=== PATIENT | male | born 1970 | race Caucasian/White ===

== ENCOUNTER → 2019-03-20 08:16 | Outpatient (CLI) | payer MEDICAID, SELFPAY | PROVIDERS: PCP Emergency Medicine; Visit Provider Internal Medicine Endocrinology, Diabetes & Metabolism | DX: E27.9 Disorder of adrenal gland, unspecified (principal) | CPT/HCPCS: 82533 ==

== ENCOUNTER → 2019-03-29 08:21 | Outpatient (CLI) | payer MEDICAID, SELFPAY | PROVIDERS: Visit Provider Emergency Medicine | DX: Z51.81 Encounter for therapeutic drug level monitoring (principal) | CPT/HCPCS: 82533 ==

== ENCOUNTER → 2019-04-07 08:36 | Outpatient (CLI) | payer MEDICAID, SELFPAY | LOC: LAB 08:40 → LAB.DROPOF 04-09 13:51 | PROVIDERS: Visit Provider Emergency Medicine | DX: Z51.81 Encounter for therapeutic drug level monitoring (principal) | CPT/HCPCS: 82533 ==

== ENCOUNTER → 2019-10-11 08:52 | Outpatient (CLI) | payer MEDICAID, SELFPAY ==
--- NOTE | 2019-10-11 08:56 | CT_ITS ---
PROCEDURE: CT ABDOMEN PELVIS WO CON CLINICAL INDICATION: R/O VENOUS CLOT DUE TO EDEMA Abdominal pain, leg swelling COMPARISON: CT ABDOMEN PELVIS W CON from 06/25/2019 TECHNIQUE: Axial images obtained with sagittal and coronal reformats. All CT scans at the facility use one or more dose reduction, viz: automated exposure control, ma/kV adjustment per patient size (including targeted exams where dose is matched to indication, i.e. head), or iterative reconstruction technique. FINDINGS: LOWER THORAX: No acute finding ABDOMEN & PELVIS: Liver, spleen, gallbladder, and adrenal glands have an unremarkable appearance. There is diffuse fatty infiltration of the pancreas. There are punctate nonobstructing bilateral renal calculi measuring up to 3 mm in the lower pole both kidneys. No ureteral calculi. No hydronephrosis. No evidence of appendicitis. No intestinal obstruction or free air. There is a moderate amount of retained colonic feces throughout the colon greatest at the rectosigmoid region. No acute bony anomalies. IMPRESSION: Constipation otherwise negative CT abdomen pelvis without contrast Dictated by: Yordy River MD 10/11/2019 17:29 Electronically signed by Yordy River MD in [facility] 10/11/2019 17:29
== END ==
PROVIDERS: PCP Emergency Medicine; Visit Provider Emergency Medicine
DX: R60.0 Localized edema (principal); M79.604 Pain in right leg
CPT/HCPCS: 74176

== ENCOUNTER → 2020-06-07 21:08 | Outpatient (CLI) | payer MEDICAID, SELFPAY | PROVIDERS: PCP Nurse Practitioner Family; Visit Provider Nurse Practitioner Family | DX: U07.1 COVID-19 (principal) | CPT/HCPCS: U0003 ==

== ENCOUNTER → 2020-11-12 07:14 | Outpatient (CLI) | payer MEDICAID, SELFPAY ==
--- NOTE | 2020-11-12 07:14 | NM_ITS ---
APPROVED REPORT Exam: Nuclear Stress Test Indication: Chest pain, SOB, HTN, DM Patient Location: Outpatient Stress Tech: Jolene Morris [place] Tech:Rhina Medellin, ARRT, RT (R)(N) Ht: 6 ft 3 in Wt: 300 lbs HR: 61 bpm BP: 131/85 mmHg BSA: 2.61 m2 BMI: 37.4 History: Chest pain, SOB, HTN, DM Procedure: Patient received a 0.4 mg of intravenous Lexiscan, resting heart rate 61 bpm, resting blood pressure 131/85 mmHg, with Lexiscan maximum heart rate achived was 81 bpm which is Less than 85 % of the maximum predicted heart rate and blood pressure was 139/76 mmHg. With Lexiscan, patient denied any complaint of chest pain. Electrocardiogram Resting electrocardiogram showed sinus rhythm, with Lexiscan there is less than 1.[address] segment depression noted from the baseline EKG. The EKG portion of the Lexiscan is nondiagnostic. Cardiac Stress and Resting SPECT Images: Cardiac Stress and Resting SPECT images were obtained using technetium 99m Myoview 31.9 mCi stress and 10.02 mCi at rest. Patient was unable to do the Prone images do to being SOB. Gated SPECT for analysis of segmental wall motion and calculation of the ejection fraction also done. Cardiac stress and resting SPECT images show mild fixed defect in the inferior wall with normal contractility gated SPECT is likely secondary to soft tissue attenuation, no reversible ischemia seen. Computer derived ejection fraction is 57% with no regional wall motion abnormality, right ventricle is normal size and contractility. Conclusion: 1. The EKG portion of the Lexiscan is nondiagnostic and 2. No scintigraphic evidence of reversible ischemia seen, computer derived ejection fraction is 57% with no regional wall motion abnormality, right ventricle is normal size and contractility. 3. Likely normal Lexiscan Myoview study. Electronically signed by : Willi Ruffin, 11/12/2020 21:06:48
--- NOTE | 2020-11-12 07:16 | CA_ITS ---
APPROVED REPORT EXAM: Comprehensive 2D, Doppler, and color-flow Echocardiogram Medicine Teacher: CASANDRA Dean, RVS Ht: 6 ft 3 in Wt: 333lbs BSA: 2.72 BP: 110/62 mmHg Indications: Abnormal ECG, Shortness of Breath, CVA/TIA, Hyperlipidemia, Hypertension/HDD Echo Enhancing Agent Comments: Extra large body habitus. 2D Dimensions IVSd 1.10 cm M: 0.6-1.2 LVEF (Visual) 55.00 % PWd 1.10 cm M: 0.6 - 1.2 LVEF (Hartman's) 61.00 % M: 52 - 72 LVDd 6.20 cm M: 4.2 - 5.9 LV Volume 221.00 mL M: 62 - 150 LVDs 4.50 cm M: 2.5 - 4.0 LV Volume Index 81.25 mL/m2 M: 34 - 74 Aortic Root 3.20 cm M: 3.1 - 3.7 LA Volume 131.00 mL Left Atrium 4.90 cm M: 3.0 - 4.0 LA Volume Index 48.00 mL/m2 (M/F) 16-34 RVID Base (AP4) 2.70 cm (M/F) 2.5-4.1 EF AP4-a2DQ 61.00 % LVOT 2.15 cm (M/F) 1.5-2.5 M-Mode Dimensions RVDd 3.90 cm (0.9-2.6) LA Diam 4.90 cm (1.9-4.0) Ao Diam 3.20 cm (2.0-3.7) AV Cusp 2.40 cm (1.5-2.6) EF (Teich) 52.00% FS 27.00% TAPSE 2.90 (<1.7) LV Diastology E/A Ratio 1.30 Aortic Valve LVOT Max 120.00 (70-110 cm/s) AoV Peak Howie. 180.00 (50-130 cm/s) Tricuspid Valve TR P. Velocity 2.66 cm/s RAP Estimate 10.00 mmHg RVSP 37.70 mmHg Left Ventricle Left atrium is mildly enlarged, left ventricle is normal size, mild concentric left ventricular hypertrophy, visually estimated ejection fraction 55% with no regional wall motion abnormality, grade 1 diastolic dysfunction seen without tissue Doppler evidence of raise left atrial pressure. Right Ventricle Right atrium and right ventricle are normal size and contractility. Aortic Valve Aortic valve is minimally thickened and fibrosed, there is no aortic stenosis or aortic insufficiency. Mitral Valve Mitral valve grossly normal, there is trace mitral regurgitation. Tricuspid Valve Tricuspid grossly normal, there is trace tricuspid regurgitation, tricuspid regurgitation jet velocity is inadequate for calculation of the right ventricular systolic pressure. Pulmonic Valve Pulmonic valve is poorly visualized. Great Vessels Aortic root is normal size. Pericardium No significant pericardial effusion noted. Conclusion 1. Mildly dilated, normal left ventricular size, mild concentric left ventricular hypertrophy, visually estimated ejection fraction 55% with no regional wall motion abnormality, grade 1 diastolic dysfunction seen without tissue Doppler evidence of raise left atrial pressure. 2. Trace mitral and tricuspid regurgitation. 3. No significant pericardial effusion noted. Electronically signed by : Willi Ruffin, 11/12/2020 21:26:37
--- NOTE | 2020-11-12 07:16 | US_ITS ---
APPROVED REPORT Exam Type: Lower Extremity Segmental Pressures Charge Out Clerk: Monica Comer CRT Indications Claudication: Edema Risk Factors Hypertension Hyperlipidemia Obesity TIA/CVA History Pressures/Indices Right Indices Left Indices Brachial 161.00 mmHg Brachial 167.00 mmHg Low Thigh 179.00 mmHg 1.07 Low Thigh 170.00 mmHg 1.02 Calf 164.00 mmHg 0.98 Calf 182.00 mmHg 1.09 Ankle(PT) 174.00 mmHg 1.04 Ankle(PT) 178.00 mmHg 1.07 Ankle(DP) 179.00 mmHg 1.07 Ankle(DP) 172.00 mmHg 1.03 Digit 150.00 mmHg 0.90 Digit 171.00 mmHg 1.02 Findings R TIKI 1.1 L TIKI 1.1 R TBI 0.9 L TBI 1.0 Normal waveforms Normal pulses Conclusion Normal appearing resting noninvasive lower extremity arterial study. Electronically signed by : Yordy River MD 11/12/2020 15:31:48
--- NOTE | 2020-11-12 07:16 | CA_ITS ---
APPROVED REPORT Bilateral Lower Extremity Venous Study for DVT. Heavy Cleaner: CT Indications Lower Extremity Pain: Bilateral LE edema, SOA Vein Imaging CFV (R): compressive, spontaneous, phasic, augmentation SFJ (R): compressive, spontaneous, phasic, augmentation FEM (R): compressive, spontaneous, phasic, augmentation POP (R): compressive, spontaneous, phasic, augmentation DFV (R): compressive, spontaneous, phasic, augmentation PTV (R): compressive, spontaneous, phasic, augmentation GSV (R): compressive, spontaneous, phasic, augmentation SSV (R): compressive, spontaneous, phasic, augmentation Peroneals (R):compressive, spontaneous, phasic, augmentation GAS (R): compressive, spontaneous, phasic, augmentation CFV (L): compressive, spontaneous, phasic, augmentation SFJ (L): compressive, spontaneous, phasic, augmentation FEM (L): compressive, spontaneous, phasic, augmentation POP (L): compressive, spontaneous, phasic, augmentation DFV (L): compressive, spontaneous, phasic, augmentation PTV (L): compressive, spontaneous, phasic, augmentation GSV (L): compressive, spontaneous, phasic, augmentation SSV (L): compressive, spontaneous, phasic, augmentation Peroneals (L):compressive, spontaneous, phasic, augmentation GAS (L): compressive, spontaneous, phasic, augmentation Findings Bilateral venous doppler negative for DVT/SVT. Vessels compressible. Interstitial edema noted. Pt and peroneals difficult to image. Conclusion No evidence of DVT or superficial thrombophlebitis in the veins scanned of the right lower extremity. Electronically signed by : Yordy River MD 11/12/2020 15:33:07
--- NOTE | 2020-11-12 09:04 | HMH.ITSHM ---
Current Home Medications as stated by this patient Asif Archuleta or patient access representative. []BISACODYL IBUPROFEN MELATONIN PROMETHAZINE CARVEDIOLOL CETIRIZINE DOXAZOSIN LEVETIRACETAM LISINOPRIL MULTIVITAMINS NIFEDIPINE POTASSIUM SENNA
--- NOTE | 2020-11-12 09:31 | CA_ITS ---
APPROVED REPORT Exam: Pharmacologic Technologist: Jolene Morris, Ht: 6 ft 3 in Wt: 333 lbs BSA: 2.72 m2 HR: 61 bpm BP: 131/85 mmHg Medical History Medications: Lisinopril,,,,, Lasix,,,,, Coreg,,,,, ZYRTEC,,,,, ProMETHAZINE,,,,, DOxazosin,,,,, KEPPRA,,,,, MeLATONIN,,,,, Bisacodyl,,,,, Potassium,,,,, Procardia XL,,,,, Stress Test Details Test: LEXISCAN HR Resting HR: 62 bpm Max Heart Rate (APMHR): 170.268722 bpm Max HR Achieved: 93 bpm Target HR (85% APMHR): 144.715415 bpm % of APMHR: 54.71 Recovery HR: 71 bpm BP Resting BP: 131/85 mmHg Max BP: 139/76 mmHg Recovery BP: 131.0/75.0 mmHg ECG Resting ECG: NSR, RAD, poor R wave progression Clinical Exercise duration: 04:00 min Highest Stage Achieved: Stress ECG Conclusion Symptoms: Mild SOA, stomach discomfort. Arrhythmias/Ectopy: None. ST-T Changes: No significant changes. Conclusion: Unremarkable Lexiscan stress. Myoview images reported separately. Electronically signed by : Willi Ruffin, 11/12/2020 20:52:56
== END ==
PROVIDERS: PCP Emergency Medicine; Visit Provider Physician Assistant
DX: R06.00 Dyspnea, unspecified (principal); R07.9 Chest pain, unspecified; R60.0 Localized edema; R94.31 Abnormal electrocardiogram [ECG] [EKG]; M79.606 Pain in leg, unspecified; R06.02 Shortness of breath
CPT/HCPCS: 78452; 93017; 93306; 93923; 93970; A9502; J2785

== ENCOUNTER → 2022-03-25 10:36 | Outpatient (CLI) | payer MEDICAID, SELFPAY | PROVIDERS: PCP Nurse Practitioner Family; Visit Provider Nurse Practitioner Family | DX: L73.9 Follicular disorder, unspecified (principal) ==

== ENCOUNTER 2022-04-09 10:00 | Outpatient (RCR) | payer MEDICAID, SELFPAY ==
--- NOTE | 2022-02-02 09:18 | HMH.PTOPWND ---
Rehab Outpt Wound Evaluation Rehab OP Wound Evaluation Start: 02/02/22 08:27 Freq: Status: Active Protocol: Document 02/02/22 09:07 GABRIEL (Rec: 02/02/22 09:13 GABRIEL [id number]) E-signed By Ant Toledo PT Subjective/History History History Pt is 51 yowm who presents with c/o R LE edema x 3-4 wks with insidious onset of symptoms. He reports no c/o pain or tenderness to palpation at this time. He presents with increased erythema, mild increased calor , and minimal weeping drainage . He reports he was recently on a round of oral abx. He has PMH of heart failure, chico 's disease, adenocortical carcinoma, HTN, CVA, seizures. He presents this date with symptoms of resolving cellulitis. Subjective Subjective 0/10 pain. 0/4 TTP. 2+ pitting edema to R foot and ankle with fibrotic edema throughout the rest of the lower leg. Lymphedema Eval Classification of Lymphedema Secondary Lymphedema Yes Stemmer's sign Stemmer's Sign yes Stage of Lymphedema Lymphedema stages Stage II (Pitting edema, increased fibrosis w/ decreased pitting) Skin Changes Dry Skin Yes Taut, Shiny Skin Yes Redness Yes Brittle Uneven Nails Yes Discoloration of Skin Yes Other Changes Yes Pain Scale Pain Scale (0-10) 0 Affected Extremities Areas Affected by Lymphedema/Edema Right Lower Extremity Manual Lymphatic Drainage Treatment Area MLD Treatment Area Right Lower Extremity Wound Problems/Impairments Impairments Problems/Impairmments Impaired Strength,Impaired Endurance,Impaired Transfers, Impaired Gait Pattern,Impaired Walking,Impaired Recreational Activities,Increased Edema, Lymphedema Present,Impaired Self Care/Self Management Prognosis Rehab Potential Good Clinical Impression Consistent with Diagnosis Yes Short Term Goals Number of Weeks 2 Decrease Edema Yes: 1+ p
--- NOTE | 2022-02-27 16:12 | HMH.RHREAS ---
Rehab Reassessment Rehab OP Re-assessment Start: 02/27/22 16:07 Freq: Status: Active Protocol: Document 02/27/22 16:07 GABRIEL (Rec: 02/27/22 16:12 PHOLINSEY [id number]) E-signed By Ant Toledo, PT Rehab Re-assessment Subjective Subjective Pt continues to report 0/10 pain. It doesn't hurt, but it itches a little. Objective Objective Notes R LE wound: R lower leg from mid-calf to dorsal foot distally remains superficially irritated. Significant erythema present and moderate purulent drainage remains present. Edema: 1+ pitting edema throughout R lower leg this date. Assessment Progress Assessment Slower Than Expected Assessment Notes Pt has shown significant improvement in edema throughout the R LE. However, he continues to have superficial skin skin wounds over a large portion of his lower leg with increased drainage and foul odor. Continues to need edema reduction and wound care. May benefit from further oral abx. Patient goals met STG; 1,[address] LT,2,3,4 Revised Goals none Plan Plan Continue per initial POC. Frequency of Therapy 2-3 x/wk Duration of therapy 4 wks Time and Billing Re-Eval Time 15 Re-Eval Billing Units 1 PHYSICIAN CERTIFICATION: I certify the specified therapy services for Asif Archuleta are required, authorized, and reviewed every 30 days.
--- NOTE | 2022-03-27 10:00 | HMH.RHREAS ---
Rehab Reassessment Rehab OP Re-assessment Start: 02/27/22 16:07 Freq: Status: Active Protocol: Document 03/27/22 09:48 GABRIEL (Rec: 03/27/22 09:50 PHOLINSEY [id number]) E-signed By Ant Toledo, PT Rehab Re-assessment Subjective Subjective Pt reports less itching in the R lower leg this date. Continues to have no c/o pain at all, 0/10. Objective Objective Notes R anterior anderson wound L=7.0 cm , W= 8.0 cm, D= 0.1 cm. Wound borders are irregular and wound is very superficial. Minimal serous drainage noted this date, no slough in wound bed. Dry skin again noted throughout R lower leg and entire R lower leg remains erythematous. Swab culture taken last visit as a precaution due to continued significant erythema, results pending. Assessment Progress Assessment Progressing as Expected Assessment Notes Pt has shown significant improvement in overall wound size. However significant falking,dry skin and erythema remain on the entire R lower leg. Wound are overall has significantly decreased. Edema continues as 1+ non-pitting. Patient goals met STG; 1,2,3 Goals Not Met LT,2,3,4 Revised Goals none Plan Plan Continue per initial POC. Frequency of Therapy 2-3 x/wk Duration of therapy 4 wks Time and Billing Re-Eval Time 13 Re-Eval Billing Units 1 PHYSICIAN CERTIFICATION: I certify the specified therapy services for Asif Archuleta are required, authorized, and reviewed every 30 days.
== END 2022-04-09 10:05 | disposition home or self-care (01) ==
LOC: PT 10:00
PROVIDERS: PCP Emergency Medicine; Visit Provider Nurse Practitioner Family
DX: I89.0 Lymphedema, not elsewhere classified (principal)
CPT/HCPCS: 29580; 87070; 87077; 87186; 87205; 97140; 97162; 97164

== ENCOUNTER → 2022-06-13 10:31 | Outpatient (CLI) | payer MEDICAID, SELFPAY ==
[2022-06-13 11:04] LABS: Adenovirus F 40/41, stool Not Detected (NotDetected); Astrovirus Not Detected (NotDetected); Campylobacter Not Detected (NotDetected); Clostridium Difficile A/B, PCR Not Detected (NotDetected); Cryptosporidium Not Detected (NotDetected); Cyclospora Cayetanesis Not Detected (NotDetected); Entamoeba histolytica Not Detected (NotDetected); Enteroaggregative E coli Not Detected (NotDetected); Enteropathogenic E coli Not Detected (NotDetected); Enterotoxigenic E coli Not Detected (NotDetected); Giardia lamblia Not Detected (NotDetected); Plesimonas Shigalloides, PCR Not Detected (NotDetected); Rotavirus A Not Detected (NotDetected); Salmonella, PCR Not Detected (NotDetected); Sapovirus Not Detected (NotDetected); Shiga-like toxin E coli Not Detected (NotDetected); Shigella Enterovasive E coli Not Detected (NotDetected); Vibrio Cholerae Not Detected (NotDetected); Vibrio, PCR Not Detected (NotDetected); Yersinia Entercolitica, PCR Not Detected (NotDetected)
[2022-06-13 15:54] LABS: Norovirus Detected (NotDetected)
== END ==
PROVIDERS: PCP Emergency Medicine; Visit Provider Emergency Medicine
DX: R19.7 Diarrhea, unspecified (principal); A08.11 Acute gastroenteropathy due to Norwalk agent
CPT/HCPCS: 87507

== ENCOUNTER 2022-12-09 16:00 | Outpatient (RCR) | payer MEDICAID, SELFPAY ==
--- NOTE | 2022-09-01 11:21 | HMH.PTOPWND ---
Rehab Outpt Wound Evaluation Rehab OP Wound Evaluation Start: 09/01/22 10:42 Freq: Status: Active Protocol: Document 09/01/22 11:02 GABRIEL (Rec: 09/01/22 11:21 PHORNE [id number]) E-signed By Ant Toledo, PT Subjective/History History History This is the initial PT eval for Asif Archuleta 51 yowm who presents with B LE increased edema and skin irritation, worse on the R LE. He has issues with CVI at baseline, but presents with a significant amount of dermatitis this date. He reports no c/o pain, but states, It really itches a lot. He also presents with large amts of B LE excoriation from scratching. He has several areas of open sores on the R LE, worst being the dorsal aspect of R foot. Subjective Subjective Pain at this time 0/10. 2/4 TTP noted to B lower legs. 2+ pitting edema noted to B LE with increased fiobrosis noted on the R lower leg. Dermatitis of unknown type extends throughout B LE and abdomen. Increased blanchable erythem anoted to R LE as well . Wound Eval Wound Right Foot Wound Type CVI vs dermatitis Is This a Chronic Wound Yes Wound Length (cm) 16.0 Wound Width (cm) 7.0 Wound Depth (cm) 0.1 Wound Bed Appearance [place],Peeling Skin,Edematous Percentage Granulated (%) 50 Percentage of Eschar (Yellow) (%) 50 Wound Margins Description Indistinct Surrounding Tissue Appearance Bright Red Edema Type Pitting Edema Degree 2+ Query Text:1+ Trace, Barely Detectable, Rebound 15-30 seconds 2+ Moderate, Slight Indentation, Rebound 10-20 seconds 3+ Deep, Deeper Indentation, Rebound > 30 seconds 4+ Very Deep, Rebound > 60 seconds Edema Appearance Tight,Red Drainage Description Serous Drainage Amount Scant Drainage Odor No Odor Wound Topical Solution/Irrigant Saline Irrigant Primary Dressing Unna Boot Wound Debridement Method
--- NOTE | 2022-10-01 11:14 | HMH.RHREAS ---
Rehab Reassessment Rehab OP Re-assessment Start: 10/01/22 11:01 Freq: Status: Active Protocol: Document 10/01/22 11:04 [email or web address] (Rec: 10/01/22 11:14 PHOLINSEY [id number]) E-signed By Ant Toledo PT Rehab Re-assessment Subjective Subjective Pt continues to c/o itching all over B LE and presents with significant dry, flaky skin in large patches. Objective Objective Notes R dorsal foot wound: L= 8.2 cm , W= 3.7 cm, D = 0.1 cm. No slough noted this date, currently 100% red tissue at wound base. Continues large amts of erythema and excoriation throughout B LE. Large patch of dermatitis of unknown type on L flank ~ 40 cm in diameter. Assessment Progress Assessment Slower Than Expected Assessment Notes Pt has shown improvements in edema in B lower legs, but large areas of open, irritated skin remain. He has multiple large patches of inflammed, dry skin over his entire body with little relief from itching and excoriation. He continues to need skilled intervention to return to prior level of function. Patient goals met ST,2,3,4 Goals Not Met LT,2,3,4,5,6,7 Revised Goals none Plan Plan Continue per initial POC. Frequency of Therapy 2 x/wk Duration of therapy 4 wks Time and Billing Re-Eval Time 17 Re-Eval Billing Units 1 PHYSICIAN CERTIFICATION: I certify the specified therapy services for Asif Archuleta are required, authorized, and reviewed every 30 days.
--- NOTE | 2022-10-29 12:55 | HMH.RHREAS ---
Rehab Reassessment Rehab OP Re-assessment Start: 10/01/22 11:01 Freq: Status: Active Protocol: Document 10/29/22 12:48 GABRIEL (Rec: 10/29/22 12:54 PHOLINSEY [id number]) E-signed By Ant Toledo PT Rehab Re-assessment Subjective Subjective Pt reports less itching and he continues to have no pain at all. 0/10. Objective Objective Notes Largest wound on R LE measured . R anterior anderson wound: L= 7. 0 cm, W= 9.0 cm, D = 0.1 cm. No slough noted this date, currently 100% red tissue at wound base. Decreased amts of erythema and excoriation throughout B LE. Less noticable dermatitis noted throughout. Assessment Progress Assessment Progressing as Expected Assessment Notes Significant improvements noted throughout B LE re: open sores, excoriation, and erythema. He has no pain, but increased edema decreases his ability to ambulate. Total wound surface area is reduced. He continues to need skilled intervention to return to prior level of function. Patient goals met ST,2,3,4 Goals Not Met LT,2,3,4,5,6,7 Revised Goals none Plan Plan Continue per initial POC. Frequency of Therapy 2 x/wk Duration of therapy 4 wks Time and Billing Re-Eval Time 14 Re-Eval Billing Units 1 PHYSICIAN CERTIFICATION: I certify the specified therapy services for Asif Archuleta are required, authorized, and reviewed every 30 days.
--- NOTE | 2022-11-23 13:02 | HMH.RHREAS ---
Rehab Reassessment Rehab OP Re-assessment Start: 10/01/22 11:01 Freq: Status: Active Protocol: Document 11/23/22 12:55 GABRIEL (Rec: 11/23/22 13:02 GABRIEL [id number]) E-signed By Ant Toledo PT Rehab Re-assessment Subjective Subjective Pt reports no pain in B LE this date, 0/10. He does continue to c/o itching and drainage. Strap Cutting Machine Operator has prescribed a topical steroidal ontment for use during dressing changes. Objective Objective Notes B LE erythema remains signiificant throughout. L LE with mostly dry skin, no open sores noted. R LE with multiple areas of open skin with superficial skin loss and serous drainage. Skin sloughing in areas of the anterior anderson. Edema remains 2 + pitting in B LE. Assessment Progress Assessment Slower Than Expected Assessment Notes Pt has been showing less erythema over the initial mos of treatment, but some increase at this time. Edema and sloughing of skin continue to significantly hamper his ability to ambulate, bathe, and perform all ADLs. He continues to need skilled intervention to return to prior level of function. Patient goals met ST,2,3,4 Goals Not Met LT,2,3,4,5,6,7 Revised Goals none Plan Plan Continue per initial POC. Frequency of Therapy 2 x/wk Duration of therapy 4 wks Time and Billing Re-Eval Time 16 Re-Eval Billing Units 1 PHYSICIAN CERTIFICATION: I certify the specified therapy services for Asif Archuleta are required, authorized, and reviewed every 30 days.
== END 2022-12-09 17:00 | disposition home or self-care (01) ==
LOC: PT 16:00
PROVIDERS: PCP Emergency Medicine; Visit Provider Emergency Medicine
DX: I89.0 Lymphedema, not elsewhere classified (principal); R60.0 Localized edema
CPT/HCPCS: 29580; 97163; 97164; 97597; 97598

== ENCOUNTER 2024-05-23 09:00 | Outpatient (RCR) | payer MEDICAID, SELFPAY ==
--- NOTE | 2024-02-03 12:10 | HMH.PTOPWND ---
Rehab Outpt Wound Evaluation Rehab OP Wound Evaluation Start: 02/03/24 11:52 Freq: Status: Active Protocol: Document 02/03/24 11:58 GABRIEL (Rec: 02/03/24 12:07 GABRIEL [id number]) E-signed By Ant Toledo, PT Subjective/History History History This is the initial PT eval for Asif Archuleta, 53 yowm who presents with c/o R LE increased edema, wounds, and drainage x several months. He reports mild pain and tenderness to palpation throughout the R lower leg. He is well known to this clinic with acceptable improvement in symptoms in the past. This date he presents with significant drainage from the R lower leg with increased erythema and edema. PMH is as follows: Colon cancer screening Venous (peripheral) insufficiency Diastolic dysfunction Edema of both lower legs Unsteadiness on feet Difficulty in walking, not elsewhere classified Essential (primary) hypertension Confusional arousals Intracranial abscess and granuloma Moderate intellectual disabilities Obesity, unspecified Disorder of adrenal gland, unspecified Muscle weakness (generalized) Conversion disorder with attacks or seizures Subjective Subjective 2+ pitting edema with Moderate fibrotic edema throughout R lower leg. Severe R lower leg erythema. 2/4 TTP to R lower leg. New diagnosis of cancer in past 12 No months? Lymphedema Eval Classification of Lymphedema Secondary Lymphedema Yes Stemmer's sign Stemmer's Sign yes Stage of Lymphedema Lymphedema stages Stage III (Non-pitting, fibrosis and sclerosis, skin changes) Skin Changes Dry Skin Yes Taut, Shiny Skin Yes Hyperkeratosis Yes Redness Yes: severe Wounds Yes Discoloration of Skin Yes Other Changes Yes Affected Extremities Areas Affected by Lymphedema/Edema Right Lower Extremity Manual Lymphatic Drainage Treatment Area MLD Treatment Area Right Lower Extremity Wound Problems/Impairments Impairments Problems/Impairmments Palpation Tenderness,Impaired Endurance,Impaired Walking, Impaired Shower/Bathing, Increased Edema,Lymphedema Present,Wound Care Needs, Subjective C/O Pain,Impaired Self Care/Self Management Prognosis Rehab Potential Good Comment Skilled therapy is needed to reduce overall edema burden, improve wound healing, and return pt to PLOF. Clinical Impression Consistent with Diagnosis Yes Short Term Goals Number of Weeks 4 Decreased Palpation Tenderness Yes: 1/4 R lower leg Decrease Edema Yes: 1+ pitting edema R LE Decrease Lymphedema Yes: Mild fibrotic edema R LE Decrease Subjective C/O Pain Yes: 2/10 R LE Patient to Understand Lymphedema Yes Treatment and Exercises Decrease Girth Measurments by (cm) Yes: R LE total by 5 cm [employer] Administrator Goals Number of Weeks 6-8 Decreased Palpation Tenderness Yes: 0/4 R lower leg Decrease Edema Yes: no pitting edema R LE Decrease Lymphedema Yes: No fibrotic edema R LE Decrease Wound Area Yes: all wounds by 75% Decrease Subjective C/O Pain Yes: 0/10 R LE Patient to be Ind w/ HEP Yes Patient to Adhere Lymphedema Precautions Yes Decrease Girth Measurments by (cm) Yes: R LE total by 15 cm Outpatient Therapy Plan of Care Treatment Plan May Include Therapeutic Exercise Including Home Yes Exercise Program Manual Therapy Techniques Yes Neuromuscular Re-education Yes Therapeutic Activities to Return to Yes Previous Functional/Work Level ADL/Self Care Education Yes Orthotics/Bracing/Splinting Yes Manual Lymphatic Drainage Yes Wound Care Yes Eval/Re-Eval Yes Frequency Times per week 2 Duration Number of Weeks 6-8 Addendums This patient is a candidate for social No or vocational rehab? Patient/Guardian verbally acknowledges Yes understanding of treatment program and consents to further treatment? Patient/Guardian verbally acknowledges Yes understanding of diagnosis, prognosis and goals for treatment? Eval Complexity PT Charges 42429 - High Complexity PHYSICIAN CERTIFICATION: I certify the specified therapy services for Asif Archuleta are required, authorized, and reviewed every 30 days.
--- NOTE | 2024-03-02 14:52 | HMH.RHREAS ---
Rehab Reassessment Rehab OP Re-assessment Start: 02/03/24 11:52 Freq: Status: Active Protocol: Document 03/02/24 14:45 GABRIEL (Rec: 03/02/24 14:52 PHORCYNTHIA [id number]) E-signed By Ant Toledo PT Rehab Re-assessment Subjective Subjective Pt reports he has no pain in his R lower leg, 0/10, and much less tenderness to palpation. He feels limited itching of his skin on the R lower leg as well. Objective Objective Notes TTP: 1 R lower leg Pain: 0/10 R lower leg Edema: 1+ pitting edema to R lower leg with MILD fibrotic edema noted to palpation. Skin: MODERATE erythema to R lower leg. Anterior lower leg wound ~ 5.0 cm L x 5.0 cm W x 0.1 cm D. Significantly dry, flaky skin noted throughout R lower leg. Assessment Progress Assessment Progressing as Expected Assessment Notes Pt has shown improvements in overall edema, pain and wound surface area. He continues to need skilled therapy to improve overall edema and reduce dryness of skin to return to PLOF. Patient goals met ST/6 LT/8 Plan Plan Continue per initial POC. Frequency of Therapy 1-2 x/wk Duration of therapy 4 wks Time and Billing Re-Eval Time 11 Re-Eval Billing Units 0 PHYSICIAN CERTIFICATION: I certify the specified therapy services for Asif Archuleta are required, authorized, and reviewed every 30 days.
--- NOTE | 2024-03-30 12:06 | HMH.RHREAS ---
Rehab Reassessment Rehab OP Re-assessment Start: 02/03/24 11:52 Freq: Status: Active Protocol: Document 03/30/24 11:59 GABRIEL (Rec: 03/30/24 12:05 DARRYNLINSEY [id number]) E-signed By Ant Toledo, PT Rehab Re-assessment Subjective Subjective Pt continues to report no pain in R LE overall, only itching from time to time. He continues to reports significant drainage , but no difficulty maintaining his dressings. Objective Objective Notes TTP: 1/ R lower leg Pain: 0/10 R lower leg Edema: 1+ pitting edema to R lower leg with MILD fibrotic edema noted to palpation. Skin: MODERATE erythema to R lower leg. Multiple R lower legs wounds noted throughout R lower leg. Anterior lower leg wound ~ 4.0 cm L x 3.5 cm W x 0.1 cm D is largets wound noted. Significantly dry, flaky skin noted throughout R lower leg. Assessment Progress Assessment Slower Than Expected Assessment Notes Pt has shown overall decrease in wound area, but not as quickly as his previous reassessment. He has some decrease in both edema and wound drainage. Skilled therapy remains indicate to reduce overall edema burden, decrease wound surface area, and return pt to PLOF. Patient goals met ST/6 LT/8 Plan Plan Continue per initial POC. Frequency of Therapy 1-2 x/wk Duration of therapy 4 wks Time and Billing Re-Eval Time 11 Re-Eval Billing Units 0 Charge for PT reassessment? No PHYSICIAN CERTIFICATION: I certify the specified therapy services for Asif Archuleta are required, authorized, and reviewed every 30 days.
--- NOTE | 2024-04-27 09:48 | HMH.RHREAS ---
Rehab Reassessment Rehab OP Re-assessment Start: 02/03/24 11:52 Freq: Status: Active Protocol: Document 04/27/24 09:44 GABRIEL (Rec: 04/27/24 09:48 DARRYNMaryCYNTHIA [id number]) E-signed By Ant Toledo, PT Rehab Re-assessment Subjective Subjective Pt continues to have no c/o pain at this time in the R LE. He does report continued feelings of itchiness and tightness in the R LE with continued edema. Objective Objective Notes TTP: 1/ R lower leg Pain: 0/10 R lower leg Edema: 1+ pitting edema to R lower leg with MILD fibrotic edema noted to palpation. Skin: MODERATE erythema to R lower leg. Multiple R lower legs wounds noted throughout R lower leg. Anterior lower leg wound ~ 3.0 cm L x 7.0 cm W x 0.1 cm D is largest wound noted. Significantly dry, flaky skin noted throughout R lower leg. Assessment Progress Assessment Slower Than Expected Assessment Notes Pt continues to have slower then expected reduction wound surface area and fluctuating increases in wound drainage from the R LE. He has some decrease in overall edema, but continued severely dry skin and open wounds. Skilled therapy remains indicate to reduce overall edema burden, decrease wound surface area, and return pt to PLOF. Patient goals met ST/6 LT/8 Plan Plan Continue per initial POC. Frequency of Therapy 1-2 x/wk Duration of therapy 4 wks Time and Billing Re-Eval Time 10 Re-Eval Billing Units 0 Charge for PT reassessment? No PHYSICIAN CERTIFICATION: I certify the specified therapy services for Asif Archuleta are required, authorized, and reviewed every 30 days.
== END 2024-05-23 23:59 | disposition home or self-care (01) ==
LOC: PT 09:00
PROVIDERS: Visit Provider Family Medicine
DX: I89.0 Lymphedema, not elsewhere classified (principal)
CPT/HCPCS: 97140; 97163

== ENCOUNTER 2024-06-22 09:00 | Outpatient (RCR) | payer MEDICAID, SELFPAY ==
--- NOTE | 2024-06-06 09:52 | HMH.RHREAS ---
Rehab Reassessment Rehab OP Re-assessment Start: 06/06/24 09:42 Freq: Status: Active Protocol: Document 06/06/24 09:43 GABRIEL (Rec: 06/06/24 09:49 PHOLINSEY [id number]) E-signed By Ant Toledo, PT Rehab Re-assessment Subjective Subjective Pt continues to report no c/o pain at this time. He reports he has been unable to attend appointments for ~ 2 weeks due to severe weather and inability to leave his SNF. Objective Objective Notes TTP: 1 R lower leg Pain: 0/10 R lower leg Edema: 1+ pitting edema to R lower leg with MILD fibrotic edema noted to palpation. Skin: MODERATE erythema to R lower leg. Multiple R lower legs wounds noted throughout R lower leg. Anterior lower leg wound: L= 12.0 cm, W= 12.0 cm , D= 0.1 cm, largest wound noted. Moderately dry, flaky skin noted throughout R lower leg. Assessment Progress Assessment Progressing as Expected Assessment Notes Pt continues to have slower then expected reduction wound surface area and fluctuating increases in wound drainage from the R LE. Less drainage noted this date with a darker yellow color on his dressing that was removed He has some decrease in overall edema and erythema, but continued severely dry skin and open wounds. Skilled therapy remains indicate to reduce overall edema burden, decrease wound surface area, and return pt to PLOF. Patient goals met ST/6 LT/8 Plan Plan Continue per initial POC. Frequency of Therapy 2 x/wk Duration of therapy 4 wks Time and Billing Re-Eval Time 12 Re-Eval Billing Units 0 Charge for PT reassessment? No PHYSICIAN CERTIFICATION: I certify the specified therapy services for Asif Archuleta are required, authorized, and reviewed every 30 days.
== END 2024-06-22 23:59 | disposition home or self-care (01) ==
LOC: PT 09:00
PROVIDERS: Visit Provider Family Medicine
DX: I89.0 Lymphedema, not elsewhere classified (principal)
CPT/HCPCS: 29580; 97597; 97598

== ENCOUNTER 2024-07-20 09:00 | Outpatient (RCR) | payer MEDICAID, SELFPAY ==
--- NOTE | 2024-07-06 17:03 | HMH.RHREAS ---
Rehab Reassessment Rehab OP Re-assessment Start: 06/27/24 15:22 Freq: Status: Active Protocol: Document 07/06/24 16:58 PHORCYNTHIA (Rec: 07/06/24 17:03 PHORNE [id number]) E-signed By Ant Toledo, PT Rehab Re-assessment Subjective Subjective No c/o pain or itching in R lower leg this date. He continues to comply with all compression wrapping and edema control efforts. Objective Objective Notes TTP: 1 R lower leg Pain: 0/10 R lower leg Edema: 1+ pitting edema to R lower leg with MILD fibrotic edema noted to palpation. Skin: MODERATE erythema to R lower leg. Multiple R lower legs wounds noted throughout R lower leg. Anterior lower leg wound: L= 18.0 cm, W= 15.0 cm , D= 0.1 cm, largest wound noted. Moderately dry, flaky skin noted throughout R lower leg Large amounts of yellow drainage from R lower leg. Assessment Progress Assessment Slower Than Expected Assessment Notes Pt continues to have slower then expected reduction of wound surface area and fluctuating increases in wound drainage from the R LE. increased drainage noted this date with a darker yellow color on his dressing that was removed He has limited changes in overall edema and erythema, but continued severely dry skin and open wounds. Skilled therapy remains indicate to reduce overall edema burden, decrease wound surface area, and return pt to PLOF. Patient goals met ST/6 LT/8 Plan Plan Continue per initial POC. R lower leg wounds: S81.801 Frequency of Therapy 2 x/wk Duration of therapy 4 wks Time and Billing Re-Eval Time 11 Re-Eval Billing Units 0 Charge for PT reassessment? No PHYSICIAN CERTIFICATION: I certify the specified therapy services for Asif Archuleta are required, authorized, and reviewed every 30 days.
== END 2024-07-20 23:59 | disposition home or self-care (01) ==
LOC: PT 09:00
PROVIDERS: Visit Provider Family Medicine
DX: I89.0 Lymphedema, not elsewhere classified (principal)
CPT/HCPCS: 97597; 97598

== ENCOUNTER 2024-08-17 09:00 | Outpatient (RCR) | payer MEDICAID, SELFPAY ==
--- NOTE | 2024-08-03 17:04 | HMH.RHREAS ---
Rehab Reassessment Rehab OP Re-assessment Start: 07/25/24 14:31 Freq: Status: Active Protocol: Document 08/03/24 16:58 DARRYNMaryCYNTHIA (Rec: 08/03/24 17:03 PHOLINSEY [id number]) E-signed By Ant Toledo, PT Rehab Re-assessment Subjective Subjective Pt reports no c/o pain, but continues to have itchy dry skin and feels his leg is not healing very well. Objective Objective Notes TTP: 1/4 R lower leg Pain: 0/10 R lower leg Edema: 1+ pitting edema to R lower leg with MILD fibrotic edema noted to palpation. Skin: MODERATE erythema to R lower leg. Multiple R lower legs wounds noted throughout R lower leg. Anterior lower leg wound: L= 21.0 cm, W= 23.6 cm , D= 0.1 cm, largest wound noted. Moderately dry, flaky skin noted throughout R lower leg COPIOUS amounts of yellow drainage from R lower leg. Assessment Progress Assessment Slower Than Expected Assessment Notes Pt continues to exhibit red, dry, severely irritated skin with copious amts of drainage without abatement at this time . Skilled therapy remains indicated to improve tissue healing in order to return pt to OF. Patient goals met ST/6 LT/8 Plan Plan Continue per initial POC. R lower leg wounds: S81.801 Frequency of Therapy 2 x/wk Duration of therapy 4 wks Time and Billing Re-Eval Time 11 Re-Eval Billing Units 1 Charge for PT reassessment? Yes PHYSICIAN CERTIFICATION: I certify the specified therapy services for Asif Archuleta are required, authorized, and reviewed every 30 days.
== END 2024-08-17 23:59 | disposition home or self-care (01) ==
LOC: PT 09:00
PROVIDERS: Visit Provider Family Medicine
DX: I89.0 Lymphedema, not elsewhere classified (principal)
CPT/HCPCS: 97164; 97597; 97598

== ENCOUNTER 2024-09-13 07:21 | Outpatient (CLI) | payer MEDICAID, SELFPAY ==
[2024-09-13 07:24] LABS: MANUAL DIFFERENTIAL MANUAL DIFFERENTIAL (MANUAL DIFF)
[2024-09-13 07:32] LABS: Basophils # 0.1 K/mm3 (0-0.2); Basophils % 1.1 % (0.1-2.0); Eosinophils # 0.3 Kmm3 (0.0-0.4); Eosinophils % 4.7 % (0.1-12.0); Hematocrit 43.6 % (42.0-52.0); Hemoglobin 14.1 g/dL (14.1-18.0); Lymphocytes # 1.6 K/mm3 (0.7-4.5); Lymphocytes % 22.6 % (10-50); Mean Corpuscular HGB Conc 32.3 g/dL (31.8-35.4); Mean Corpuscular Hemoglobin 28.8 pg (27.0-31.2); Mean Platelet Volume 12.4 fl (7.4-10.4); Monocytes # 0.6 K/mm3 (0.1-1.0); Monocytes % 8.9 % (1.7-9.3); Neutrophils # 4.4 K/mm3 (1.8-7.8); Neutrophils % 62.3 % (37.0-80.0); Platelet Count 145 K/mm3 (142-424); Red Cell Distribution Width 15.2 % (11.5-17.5); White Blood Count 7.1 K/mm3 (4.8-10.8)
[2024-09-13 07:51] LABS: Albumin Level 4.1 g/dl (3.5-5.0); Chloride 106 mmol/L (98-107); Potassium 4.2 mmoL/L (3.5-5.1); Sodium 140 mmol/L (136-145)
[2024-09-13 07:54] LABS: Alanine Aminotransferase 22 U/L (12-78); Albumin/Globulin Ratio 1.1 (1.1-1.8); Alkaline Phosphatase 79 U/L (38-126); Anion Gap 12.2 mEq/L (5-15); Aspartate Amino Transferase 30 U/L (17-59); Bilirubin,Total 0.6 mg/dl (0.2-1.3); Blood Urea Nitrogen 17 mg/dl (9-20); Carbon Dioxide 26 mmol/L (22.0-30.0); Chol/HDL Ratio 6.7 (1-3.5); Cholesterol 227 mg/dl (140-200); Estimated Glomerular Filt Rate 88 ml/min (>60); GFR (African American) 106 ML/MIN (>60); Globulin 3.9 g/dL (1.3-3.2); Glucose 99 mg/dl (74-100); HDL Cholesterol 34 mg/dl (40-60); Triglycerides 184 mg/dl (30-150); VLDL Cholesterol 37 mg/dL (0-40)
[2024-09-13 08:25] LABS: Thyroid Stimulating Hormone 1.92 uIU/mL (0.465-4.68)
[2024-09-13 08:31] LABS: Hemoglobin A1C 5.1 % (4.0-6.0)
[2024-09-13 09:37] LABS: Eosinophils % 3 % (0-3); Lymphocytes % 26 % (10-50); Monocytes % 5 % (2-9); Neutrophils % 66 % (42-76); Platelet Estimate Normal; RBC Morphology Normal; Total Cells Counted 100
== END 2024-09-13 23:59 | disposition home or self-care (01) ==
PROVIDERS: PCP Nurse Practitioner Family; Visit Provider Nurse Practitioner Family
DX: Z13.1 Encounter for screening for diabetes mellitus (principal); I89.0 Lymphedema, not elsewhere classified; E66.9 Obesity, unspecified
CPT/HCPCS: 36415; 80053; 80061; 83036; 84439; 84443; 85007; 85014; 85018; 85048; 85049

== ENCOUNTER 2024-09-19 09:00 | Outpatient (RCR) | payer MEDICAID, SELFPAY ==
--- NOTE | 2024-08-31 16:42 | HMH.RHREAS ---
Rehab Reassessment Rehab OP Re-assessment Start: 08/22/24 11:07 Freq: Status: Active Protocol: Document 08/31/24 16:35 GABRIEL (Rec: 08/31/24 16:42 PHORCYNTHIA [id number]) E-signed By Ant Toledo, PT Rehab Re-assessment Subjective Subjective I feel pretty good, my legs don't hurt or anything. He has no c/o itching this date and much improved dry skin noted at this time. Objective Objective Notes TTP: 0/4 R lower leg Pain: 0/10 R lower leg Edema: 1+ pitting edema to R lower leg with MILD fibrotic edema noted to palpation. Skin: MODERATE erythema to R lower leg. Wound to R anterior foot/ankle: L= 3.0 cm , W= 3.0 cm, D= 0.1 cm. Minimally dry, flaky skin noted throughout R lower leg minimal amounts of yellow drainage from R lower leg. Assessment Progress Assessment Progressing as Expected Assessment Notes Pt with significant reduction of overall R lower leg wound surface area at this time. Continues to have red, dry skin, but overall improved. No c/o pain or tenderness to palpation. Skilled therapy remains indicated to reduce overall wound surface area and R lower leg edema to return to PLOF. Patient goals met ST/6 LT/8 Plan Plan Continue per initial POC. Frequency of Therapy 2 x/wk Duration of therapy 4 wks Time and Billing Re-Eval Time 11 Re-Eval Billing Units 0 Charge for PT reassessment? No PHYSICIAN CERTIFICATION: I certify the specified therapy services for Asif Archuleta are required, authorized, and reviewed every 30 days.
== END 2024-09-19 23:59 | disposition home or self-care (01) ==
LOC: PT 09:00
PROVIDERS: Visit Provider Family Medicine
DX: I89.0 Lymphedema, not elsewhere classified (principal)
CPT/HCPCS: 97597; 97598

== ENCOUNTER 2024-11-22 07:10 | Outpatient (CLI) | payer MEDICAID, SELFPAY ==
--- OUTSIDE RECORDS SUMMARY | 2024-11-22 07:13 | XMS_ITS | Clinical Summary ---
Author Organization [facility] Address [address] [place] [address] [place] [address] Phone Care Team Providers Care Arborist Representative Name Role Phone Unavailable Primary Care Provider Unavailabl e Allergies No known active allergies Medications * This document contains information received from the source organization and may not represent a complete record from that organization. No known medications Active Problems No known active problems Medical History Medical History Date Comments Disorder of adrenal gland, unspecified Obesity, unspecified Hypokalemia Moderate intellectual disability Intracranial abscess and granuloma Confusional arousals Hypertension Dysphagia Psoriasis Acute embolism and thrombosi s of superficial veins of left upper extremity Social History Tobacco Use Types Packs/Day Years Used Date Smoking Tobacco: Unknown Tobacco Cessation:Counseling Given: No Alcohol Use Standard Drinks/Week Comments Not Currently 0 (1 standard drink = 0.6 oz pur e alcohol) Sex and Gender Information Value Date Recorded Sex Assigned at Not on file Legal Sex Male 10:51 AM EST Gender Identity Not on file Sexual Orientation Not on file Obstetrics History Plan of Treatment Health Maintenance Due Date Last Done Comments Annual Wellness Exam 1973 DTaP/TDaP/Td (1 - Tdap) 1989 Hepatitis B Vaccine (1 of 3 - 19+ 3-dose series) 1989 Cologuard 09/03/2015 Colon Cancer Screening 09/03/2015 Colonoscopy 09/03/2015 FIT 09/03/2015 Sigmoidoscopy 09/03/2015 Virtual Colonography 09/03/2015 Pneumococcal Vaccine 50+ (1 of 1 - PCV) 2020 Zoster (1 of 2) 2020 COVID-19 Vaccine (2023-2 5 season) 2024 Influenza Vaccine (Season Ended) 2025 Meningococcal B Vaccine Aged Out No l onger eligible based on patient's age to complete this topic [place]
--- OUTSIDE RECORDS SUMMARY | 2024-11-22 07:13 | XMS_ITS | Clinical Summary ---
Author Organization [facility] Address [address] [id number] Care Team Providers Care Hogshead Hand Name Role Phone Donavon Shepard MD Primary Care Provider [phone] Allergies No known active allergies Medications acetaminophen (Tylenol) 500 MG tablet 09/16/2020 Active lisinopril 40 MG tablet TAKE 1 TABLET BY MOUTH DAILY 09/29/2018 Active NIFEdipine XL (Procardia XL) 30 MG 24 hr tablet TAKE 1 TABLET DAILY. 02/22/2019 Active senna (Senokot) 8.6 MG tablet TAKE 1 TABLET Bedtime 02/22/2019 Active potassium chloride CR (Klor-Con M20) 20 MEQ ER tablet Take 1 tablet twice daily 02/22/2019 Active furosemide (Lasix) 20 MG tablet Take by mouth. Active psyllium (Konsyl) 33 % powder Take by mouth. Active levETIRAcetam (Keppra) 750 MG tablet Take 1 tablet (750 mg total) by mouth 2 (two) times a day. 60 tablet 03/11/2021 Active Immunizations Immunization Administration Dates Next Due Influenza, injectable, quadrivalent, preservativ e free 02/22/2019 Family History Medical History Relation Name Comments Hypertension Mother Relation Name Status Comments Mother Social History Tobacco Use Types Packs/Day Years Used Date Smoking Tobacco: Never Smokeless Tobacco: Never Tobacco Cessation:Counseling Given: Not Answered Alcohol Use Standard Drinks/Week Comments No 0 (1 standard drink = 0.6 oz pur e alcohol) Sex and Gender Information Value Date Recorded Sex Assigned at Not on file Legal Sex Male 7:20 PM EDT Gender Identity Not on file Sexual Orientation Not on file Last Filed Vital Signs Vital Sign Reading Time Taken Comments Blood Pressure 134/80 08/17/2022 3:02 PM EDT Pulse 75 08/17/2022 3:02 PM EDT Temperature 37.2 C (99 F) 03/17/2019 9:00 AM EDT Respiratory Rate 15 03/11/2021 1:55 PM EDT Oxygen Saturation 97% 08/17/2022 3:02 PM EDT Inhaled Oxygen Concentration - - Weight 150 kg (330 lb) 08/17/2022 3:02 PM EDT Height 190.5 cm (6' 3 ) 08/17/2022 3:02 PM EDT Body Mass Index 41.25 08/17/2022 3:02 PM EDT Plan of Treatment Health Maintenance Due Date Last Done Comments [facility]-Depression Screening 1970 [facility]-Infant/Child/Adol SDOH Screenings 1970 [facility]- SDOH Screenings 1988 [facility]-Adult SDOH Screenings 1988 [facility]-Hepatitis B Vaccines (1 of 3 - 19+ 3-dose series) 1989 CT Colonography 09/03/2015 Colonoscopy 09/03/2015 FIT-DNA 09/03/2015 FIT 09/03/2015 FOBT 09/03/2015 Sigmoidoscopy 09/03/2015 [facility]-Colorectal Cancer Screening 09/03/2015 [facility]-Pneumococcal Vaccine: 50+ Years (1 of 1 - PCV) 2020 [facility]-Zoster Vaccines (1 of 2) 2020 [facility]-DTaP,Tdap,and Td Vaccines (2 - Td or Tdap) 08/24/2023 08/23/2013 [id number] Vaccine (3 - season) 2024 07/25/2020, 07/02/2020 [facility]-Influenza Vaccine (Season Ended) 2025 02/22/2019, 03/18/2018, 03/04/2017, Additional history exists [facility]-HIV Screening Completed 01/07/2019, 11/20/2018 [facility]-Hepatitis C Screening Completed 01/07/2019, [facility]-Obesity Intervention Completed 08/17/2022 HPV Vaccines Aged Out No longer eligi ble based on patient's age to complete this topic [facility]-HIB Vaccines Aged Out No longer e ligible based on patient's age to complete this topic [facility]-Hepatitis A Vaccines Aged Out No longer eligible based on patient's age to complete this topic [facility]-IPV Vaccines Aged Out No longer e ligible based on patient's age to complete this topic [facility]-Rotavirus Vaccines Aged Out No lo nger eligible based on patient's age to complete this topic Procedures Procedure Name Priority Date/Time Associated Diagnosis Comments HEPATITIS C ANTIBODY W/REFLEX TO HCV QUANT PCR Routine 01/07/2019 9:10 AM EDT RAPID HIV 1 AND 2 ANTIBODIES Routine 01/07/2019 9:10 AM EDT from Last 3 Months or Most Recently Relevant to Health Maintenance Results * Hepatitis C Antibody (01/07/2019 9:10 AM EDT) Hepatitis C Antibody NEGATIVE Reference Range: Negative SUNQUEST 01/07/2019 9:10 AM EDT 01/07/2019 9:25 AM EDT Abel Ching MD LAB BLOOD ORDERABLES Final R esult SUNQUEST * Rapid HIV 1 & 2 Antibody/Antigen Screen (01/07/2019 9:10 AM EDT) HIV 1 And 2 Antibodies NONREACTIVE Screening for HIV 1 and 2 antibodies is NONREACTIVE. No confirmatory testing is required. SUNQUEST 01/07/2019 9:10 AM EDT 01/07/2019 9:25 AM EDT Abel Ching MD LAB BLOOD ORDERABLES Final R esult SUNQUEST from Last 3 Months or Most Recently Relevant to Health Maintenance Insurance [place] Care Teams Hogshead Hand Relationship Specialty Start Date End Date Donavon Shepard MD [address] [place] [address] PCP - General 10/04/20
[2024-11-22 07:53] LABS: Cholesterol 133 mg/dl (140-200); HDL Cholesterol 33 mg/dl (40-60); Triglycerides 128 mg/dl (30-150)
== END 2024-11-22 23:59 | disposition home or self-care (01) ==
PROVIDERS: PCP Nurse Practitioner Family; Visit Provider Nurse Practitioner Family
DX: E78.5 Hyperlipidemia, unspecified (principal)
CPT/HCPCS: 36415; 80061

== ENCOUNTER 2025-03-09 09:10 | Outpatient (CLI) | payer MEDICAID, SELFPAY ==
--- OUTSIDE RECORDS SUMMARY | 2025-03-09 09:16 | XMS_ITS | Clinical Summary ---
Author Organization [facility] Address [address] [place] [address] Phone Care Team Providers Care Pipe And Test Supervisor Name Role Phone Unavailable Primary Care Provider [...] on file Sexual Orientation Not on file Plan of Treatment Health Maintenance Due Date Last Done Comments Annual Wellness Exam 1973 DTaP/TDaP/Td (1 - Tdap) 1989 Hepatitis B Vaccine (1 of 3 - 19+ 3-dose series) 1989 Cologuard 09/03/2015 Colon Cancer Screening 09/03/2015 Colonoscopy 09/03/2015 FIT 09/03/2015 Sigmoidoscopy 09/03/2015 Virtual Colonography 09/03/2015 Pneumococcal Vaccine 50+ (1 of 1 - PCV) 2020 Zoster (1 of 2) 2020 COVID-19 Vaccine ( - 2023-2 5 season) 2025 Influenza Vaccine (#1) 2025 Meningococcal B Vaccine Aged Out No l onger eligible based on patient's age to complete this topic [place]
--- OUTSIDE RECORDS SUMMARY | 2025-03-09 09:16 | XMS_ITS | Clinical Summary ---
Author Organization [facility] Address [address] [id number] Care Team Providers Care House Calls Nurse Name Role Phone Donavon Shepard MD Primary Care Provider [phone] Allergies No known active allergies Medications acetaminophen [...] Date Last Done Comments [facility]-Depression Screening 1970 [facility]-/Child/Adol SDOH Screenings 1970 [facility]- SDOH Screenings 1988 [...] (2 - Td or Tdap) 08/24/2023 08/23/2013 [id number] Vaccine (3 - season) 2025 07/25/2020, 07/02/2020 [facility]-Influenza Vaccine (#1) 01/22/202502/22, 03/18/2018, 03/04/2017, Additional history exists [facility]-HIV Screening [...] to Health Maintenance Insurance [place] Care Teams House Calls Nurse Relationship Specialty Start Date End Date Donavon Shepard MD [address] [place] [address] PCP - General 10/04/20
[2025-03-09 09:48] LABS: Alanine Aminotransferase 29 U/L (12-78); Albumin Level 3.9 g/dl (3.5-5.0); Albumin/Globulin Ratio 1.4 (1.1-1.8); Alkaline Phosphatase 93 U/L (38-126); Anion Gap 12.5 mEq/L (5-15); Aspartate Amino Transferase 30 U/L (17-59); Bilirubin,Total 0.7 mg/dl (0.2-1.3); Blood Urea Nitrogen 19 mg/dl (9-20); Calcium 8.5 mg/dl (8.4-10.2); Carbon Dioxide 27 mmol/L (22.0-30.0); Chloride 104 mmol/L (98-107); Creatinine,Serum 0.80 mg/dl (0.66-1.25); Estimated Glomerular Filt Rate 101 ml/min (>60); GFR (African American) 122 ML/MIN (>60); Globulin 2.8 g/dL (1.3-3.2); Glucose 92 mg/dl (74-100); Potassium 4.5 mmoL/L (3.5-5.1); Sodium 139 mmol/L (136-145); Total Protein,Serum 6.7 g/dl (6.3-8.2)
== END 2025-03-09 23:59 | disposition home or self-care (01) ==
PROVIDERS: PCP Family Medicine; Visit Provider Family Medicine
DX: I10 Essential (primary) hypertension (principal)
CPT/HCPCS: 36415; 80053

== ENCOUNTER 2025-04-30 09:04 | Outpatient (CLI) | payer MEDICAID, SELFPAY ==
[2025-04-30 09:39] LABS: Hematocrit 47.2 % (42.0-52.0); Hemoglobin 15.4 g/dL (14.1-18.0); Immature Granulocytes % 0.2 %; Mean Corpuscular HGB Conc 32.6 g/dL (31.8-35.4); Mean Corpuscular Hemoglobin 29.4 pg (27.0-31.2); Mean Corpuscular Volume 90.2 fl (80-94); Nucleated Red Blood Cells % 0 %; Platelet Count 108 K/mm3 (142-424); Red Blood Count 5.23 M/mm3 (4.60-6.20); Red Cell Distribution Width-SD 46.5 fL; White Blood Count 5.4 K/mm3 (4.8-10.8)
[2025-04-30 09:55] LABS: Alanine Aminotransferase 30 U/L (12-78); Albumin Level 4.2 g/dl (3.5-5.0); Albumin/Globulin Ratio 1.3 (1.1-1.8); Alkaline Phosphatase 76 U/L (38-126); Anion Gap 9.5 mEq/L (5-15); Aspartate Amino Transferase 37 U/L (17-59); Bilirubin,Total 0.6 mg/dl (0.2-1.3); Blood Urea Nitrogen 17 mg/dl (9-20); Calcium 9.0 mg/dl (8.4-10.2); Carbon Dioxide 28 mmol/L (22.0-30.0); Chloride 101 mmol/L (98-107); Creatinine,Serum 0.80 mg/dl (0.66-1.25); Estimated Glomerular Filt Rate 101 ml/min (>60); GFR (African American) 122 ML/MIN (>60); Globulin 3.3 g/dL (1.3-3.2); Glucose 82 mg/dl (74-100); Potassium 4.5 mmoL/L (3.5-5.1); Sodium 134 mmol/L (136-145); Total Protein,Serum 7.5 g/dl (6.3-8.2)
[2025-04-30 10:25] LABS: Thyroid Stimulating Hormone 1.68 uIU/mL (0.465-4.68)
[2025-04-30 10:56] LABS: Free T4 (Free Thyroxine) 0.97 ng/dl (0.78-2.19)
== END 2025-04-30 23:59 | disposition home or self-care (01) ==
LOC: LAB.DROPOF 09:04
PROVIDERS: PCP Family Medicine; Visit Provider Nurse Practitioner Family
DX: D69.6 Thrombocytopenia, unspecified (principal); I10 Essential (primary) hypertension; M62.81 Muscle weakness (generalized)
CPT/HCPCS: 36415; 80053; 84439; 84443; 85025

== ENCOUNTER 2025-05-18 09:47 | Outpatient (CLI) | payer MEDICAID, SELFPAY ==
--- OUTSIDE RECORDS SUMMARY | 2025-05-18 09:50 | XMS_ITS | Clinical Summary ---
Author Organization [facility] Address [address] [place] [address] Phone Care Team Providers Care Horseradish Maker Name Role Phone Unavailable Primary Care Provider [...] of 2) 2020 COVID-19 Vaccine ( - 2024-2 6 season) 2025 Influenza Vaccine (#1) 2025 Meningococcal B Vaccine Aged Out No l onger eligible based on patient's age to complete this topic [place]
--- OUTSIDE RECORDS SUMMARY | 2025-05-18 09:51 | XMS_ITS | Clinical Summary ---
Author Organization Healthcare Address [address] [id number] Care Team Providers Care Grievance And Appeals Coordinator Name Role Phone Donavon Shepard MD Primary Care Provider [phone] Allergies No known active allergies Medications acetaminophen [...] (2 - Td or Tdap) 08/24/2023 08/23/2013 [id number] Vaccine (3 - season) 2025 07/25/2020, 07/02/2020 [facility]-Influenza Vaccine (#1) 01/22/202502/22, 03/18/2018, 03/04/2017, Additional history exists [facility]-HIV Screening Completed 01/07/2019, 11/20/2018 [facility]-Hepatitis C Screening Completed 01/07/2019, [facility]-Obesity Intervention Completed 08/17/2022 HPV Vaccines (No Doses Required) Completed [facility]-HIB Vaccines Aged Out No longer e [...] 2 Antibody/Antigen Screen (01/07/2019 9:10 AM EDT) Pathologist [facility] HIV 1 And 2 Antibodies NONREACTIVE Screening for HIV 1 and 2 antibodies is NONREACTIVE. No confirmatory testing is required. SUNQUEST 01/07/2019 9:10 AM EDT 01/07/2019 9:25 AM EDT Abel Ching MD LAB BLOOD ORDERABLES Final R esult SUNQUEST from Last 3 Months or Most Recently Relevant to Health Maintenance Insurance [place] Care Teams Grievance And Appeals Coordinator Relationship Specialty Start Date End Date Donavon Shepard MD [address] [place] [address] PCP - General 10/04/20
[2025-05-18 11:30] LABS: Hematocrit 45.6 % (42.0-52.0); Hemoglobin 15.0 g/dL (14.1-18.0); Immature Granulocytes % 0.4 %; Mean Corpuscular HGB Conc 32.9 g/dL (31.8-35.4); Mean Corpuscular Hemoglobin 29.7 pg (27.0-31.2); Mean Corpuscular Volume 90.3 fl (80-94); Nucleated Red Blood Cells % 0 %; Platelet Count 111 K/mm3 (142-424); Red Blood Count 5.05 M/mm3 (4.60-6.20); Red Cell Distribution Width-SD 47.1 fL; White Blood Count 5.2 K/mm3 (4.8-10.8)
== END 2025-05-18 23:59 | disposition home or self-care (01) ==
LOC: LAB.DROPOF 09:48
PROVIDERS: PCP Family Medicine; Visit Provider Family Medicine
DX: D69.6 Thrombocytopenia, unspecified (principal)
CPT/HCPCS: 36415; 85025